=== PATIENT | male | born 1990 | race Caucasian/White ===

== ENCOUNTER 2019-04-12 04:56 | Emergency (ER) | payer SELFPAY ==
[~2019-04-12] VITALS: Ht 170.1 cm; Wt 74.8 kg
--- NOTE | ~2019-04-12 | EKG ---
[place], [place] ELECTROCARDIOGRAM REPORT NAME: MARILUZ MELTON UNIT #: [id number] ROOM: DOCTOR: EPIPHANY DRAFT REPORT BIRTHDATE: [birth year] [facility] Test Date: 2019-04-12 Test Time: 05:51:24 Pat Name: MARILUZ MELTON Department: Room: Gender: [employer] Architect: : [id number] Requested By: MARQUIS DOCKERY Order Number: [id number] Reading MD: Mikael Ordonez MD Measurements Intervals [place]onson Rate: 103 P: 58 AL: 142 QRS: -25 QRSD: 106 T: 23 QT: 351 QTc: 460 Interpretive Statements Sinus tachycardia Borderline left axis deviation No previous ECG available for comparison Electronically Signed On 04-13-2019 7:58:11 PDT by Mikael Ordonez MD CM:EKGRPT:ELECTROCARDIOGRAM REPORT [id number] MARQUIS POSEY DRAFT REPORT MARQUIS DOCKERY DO
[2019-04-12] MEDS ORDERED: ZOLOFT100 MG PO (05:05)
[2019-04-12 06:01] LABS: BASO % 0.3 % (0.0-1.0); EOS % 0.2 % (1.0-4.0); HEMATOCRIT 41.7 % (42.0-52.0); HEMOGLOBIN 14.2 g/dl (14.0-18.0); LYMPH # 0.5 10*3/uL (1.3-4.4); LYMPH % 4.9 % (27.0-41.0); MEAN CELL VOLUME 97.4 fl (80.0-94.0); MEAN CORPUSCULAR HGB 33.2 pg (27.0-31.0); MEAN CORPUSCULAR HGB CONC 34.1 g/dl (33.0-37.0); MEAN PLATELET VOLUME 8.5 fl (9.6-12.3); MONO # 0.7 10*3/uL (0.1-1.0); MONO % 7.3 % (3.0-9.0); NEUT # 8.8 10*3/uL (2.3-7.9); PLATELET COUNT AUTOMATED 122 10*3/uL (130-400); RED BLOOD COUNT 4.28 10*6/uL (4.50-5.90); WHITE BLOOD COUNT 10.1 10*3/uL (4.8-10.8)
[2019-04-12 06:03] LABS: BILIRUBIN NEGATIVE (NEGATIVE); BLOOD 1+ (NEGATIVE); CLARITY CLEAR (CLEAR); COLOR YELLOW (YELLOW); GLUCOSE 1+ (NEGATIVE); KETONE NEGATIVE (NEGATIVE); LEUKO ESTERASE NEGATIVE (NEGATIVE); NITRITE NEGATIVE (NEGATIVE); SPECIFIC GRAVITY 1.025 (1.005-1.030); UROBILINOGEN 0.2 E.U./dl (0.2-1.0)
[2019-04-12 06:19] LABS: BACTERIA 1+; RBC 16-20 rbc/hpf (0-2)
[2019-04-12 06:20] LABS: FINE GRANULAR CAST 20-30; HYALINE CAST TNTC
[2019-04-12 06:20] LABS: ACT PARTIAL THROMBO TIME 23.6 SECONDS (20.0-32.1); INTERNATIONAL NORM RATIO 0.9 (2.0-3.5)
[2019-04-12 06:25] LABS: ALBUMIN 4.4 gm/dl (3.1-4.5); ALKALINE PHOSPHATASE 82 U/L (45-117); BUN 11 mg/dl (7-24); CHLORIDE 103 mmol/L (98-107); CREATININE 0.77 mg/dL (0.70-1.30); LIPASE 132 U/L (73-393); POTASSIUM 3.1 mmol/L (3.5-5.1); SGOT/AST 28 IU/L (3-35); SGPT/ALT 25 U/L (12-78); SODIUM 136 mmol/L (136-145)
[2019-04-12 06:32] LABS: TROPONIN I < 0.015 ng/ml (<0.045)
== END 2019-04-12 07:55 ==
LOC: ED 04:56
PROVIDERS: Student in an Organized Health Care Education/Training Program
DX: T40.2X1A Poisoning by other opioids, accidental (unintentional), initial encounter (principal); Z88.8 Allergy status to other drugs, medicaments and biological substances; Z79.899 Other long term (current) drug therapy; Y92.89 Other specified places as the place of occurrence of the external cause

== ENCOUNTER 2019-04-16 23:03 | Emergency (ER) | payer SELFPAY ==
[~2019-04-16] VITALS: Ht 15544 cm; Wt 72.6 kg
[~2019-04-16 23:03] MED LIST: ZOLOFT100 MG PO
[2019-04-16 23:27] LABS: BASO # 0.1 10*3/uL (0.0-0.1); BASO % 0.5 % (0.0-1.0); EOS % 0.4 % (1.0-4.0); HEMATOCRIT 30.3 % (42.0-52.0); HEMOGLOBIN 9.9 g/dl (14.0-18.0); LYMPH # 2.3 10*3/uL (1.3-4.4); LYMPH % 22.9 % (27.0-41.0); MEAN CELL VOLUME 102.7 fl (80.0-94.0); MEAN CORPUSCULAR HGB 33.6 pg (27.0-31.0); MEAN CORPUSCULAR HGB CONC 32.7 g/dl (33.0-37.0); MEAN PLATELET VOLUME 9.3 fl (9.6-12.3); MONO # 0.7 10*3/uL (0.1-1.0); MONO % 6.7 % (3.0-9.0); NEUT # 6.9 10*3/uL (2.3-7.9); NEUT % 69.2 % (47.0-73.0); PLATELET COUNT AUTOMATED 102 10*3/uL (130-400); RED BLOOD COUNT 2.95 10*6/uL (4.50-5.90); RED CELL DISTRI WIDTH 12.3 % (0-14.5); WHITE BLOOD COUNT 9.9 10*3/uL (4.8-10.8)
[2019-04-16 23:39] LABS: ACT PARTIAL THROMBO TIME 21.3 SECONDS (20.0-32.1); INTERNATIONAL NORM RATIO 1.1 (2.0-3.5)
[2019-04-16 23:39] LABS: BASO # 0.1 10*3/uL (0.0-0.1); BASO % 0.6 % (0.0-1.0); EOS # 0.1 10*3/uL (0.0-0.4); EOS % 0.5 % (1.0-4.0); HEMOGLOBIN 10.1 g/dl (14.0-18.0); LYMPH # 2.4 10*3/uL (1.3-4.4); LYMPH % 22.8 % (27.0-41.0); MEAN CORPUSCULAR HGB 33.4 pg (27.0-31.0); MEAN CORPUSCULAR HGB CONC 31.6 g/dl (33.0-37.0); MEAN PLATELET VOLUME 8.9 fl (9.6-12.3); MONO # 0.7 10*3/uL (0.1-1.0); MONO % 7.1 % (3.0-9.0); NEUT # 7.1 10*3/uL (2.3-7.9); NEUT % 68.7 % (47.0-73.0); PLATELET COUNT AUTOMATED 271 10*3/uL (130-400); RED BLOOD COUNT 3.02 10*6/uL (4.50-5.90); RED CELL DISTRI WIDTH 12.1 % (0-14.5); WHITE BLOOD COUNT 10.3 10*3/uL (4.8-10.8)
[2019-04-16 23:42] LABS: ALKALINE PHOSPHATASE 47 U/L (45-117); BUN 5 mg/dl (7-24); CHLORIDE 113 mmol/L (98-107); POTASSIUM 2.6 mmol/L (3.5-5.1); SGOT/AST 14 IU/L (3-35); SGPT/ALT 16 U/L (12-78); SODIUM 145 mmol/L (136-145); TOTAL PROTEIN 5.3 gm/dL (6.4-8.2)
== END 2019-04-17 00:10 | disposition short-term general hospital (02) ==
LOC: ED 23:03
PROVIDERS: Emergency Medicine Emergency Medical Services
DX: S41.111A Laceration without foreign body of right upper arm, initial encounter (principal); S51.811A Laceration without foreign body of right forearm, initial encounter; R79.1 Abnormal coagulation profile; F10.929 Alcohol use, unspecified with intoxication, unspecified; Z88.6 Allergy status to analgesic agent; Z79.899 Other long term (current) drug therapy; W22.8XXA Striking against or struck by other objects, initial encounter; Y93.89 Activity, other specified; Y92.89 Other specified places as the place of occurrence of the external cause; Y99.8 Other external cause status; Y90.9 Presence of alcohol in blood, level not specified

== ENCOUNTER 2019-05-14 23:00 | Emergency (ER) | payer SELFPAY | END 2019-05-14 23:20 | disposition E | LOC: ED 23:00 | DX: T50.901A Poisoning by unspecified drugs, medicaments and biological substances, accidental (unintentional), initial encounter (principal); I46.9 Cardiac arrest, cause unspecified; Z88.6 Allergy status to analgesic agent; Z79.899 Other long term (current) drug therapy; Y92.89 Other specified places as the place of occurrence of the external cause ==